=== PATIENT | female | born 1995 | race Caucasian/White ===

== ENCOUNTER 2019-09-16 16:07 | Emergency (ER) | payer BC, SELFPAY ==
[2019-09-16 16:42] VITALS: BP 124/75; PULSE 88; RESP 18; TEMP 37.6; O2SAT 100
--- NOTE | 2019-09-16 17:00 | ED.URI ---
HPI - URI/Sore Throat General Chief Complaint: Upper Respiratory Infection Stated Complaint: sore throat achy and chills Time Seen by Provider: 09/16/19 16:53 Source: patient and RN notes reviewed Mode of arrival: ambulatory Limitations: no limitations History of Present Illness HPI Narrative: Patient presents today complaining of sore throat, body aches, chills, dry cough. Symptoms began today. Denies shortness of breath or fever. No history of asthma or COPD. She has tried no medication for symptoms prior to arrival. She is a non-smoker. She did not receive a flu vaccine this season. MD elicited complaint: cough Related Data Home Medications Medication Instructions Recorded Confirmed No Home Medications 09/16/19 09/16/19 Allergies Allergy/AdvReac Type Severity Reaction Status Date / Time No Known Allergies Allergy Verified 09/16/19 17:00 Review of Systems Review of Systems: Narrative: CONSTITUTIONAL: Denies fever, or sweats.+Body aches, chills EYES: Denies visual changes, redness, or discharge. ENT: Denies rhinorrhea, congestion, or otalgia.+Sore throat CARDIOVASCULAR: Denies chest pain, palpitations, or edema. RESPIRATORY: Denies dyspnea.+Cough GASTROINTESTINAL: Denies abdominal pain, nausea, vomiting, or diarrhea. GENITOURINARY: Denies dysuria or hematuria. SKIN: Denies rash, itching, or wounds. MUSCULOSKELETAL: Denies back pain, joint pain, or myalgia. NEUROLOGIC: Denies headache, numbness, tingling, or weakness. PSYCH: Denies depression or anxiety. [facility] Family History Family History (Updated 07/12/18 @ 13:10 by DOCTOR UNKNOWN) Other Diabetes mellitus Family history of cardiovascular disease Family history of hypercholesterolemia Hypertension Social History Social History Smoking status: Never smoker Alcohol intake: current Comments At time of signature, I have reviewed and agree with nursing past medical, surgical, social and family history unless otherwise noted. Please see nursing chart for further information. There is no relevant family history pertinent to the presenting complaint Exam Narrative: Exam Narrative: GENERAL: Well-appearing, well-nourished, and in no acute distress. HEAD: Normocephalic, atraumatic. EYES: EOMI. No redness or drainage. Conjunctivae normal. ENT: Mucous membranes pink and moist. Nares clear. No rhinorrhea. TMs normal bilaterally. Throat normal. Uvula midline. NECK: Normal AROM. Supple. No lymphadenopathy. CHEST: No respiratory distress. Clear to auscultation. HEART: Regular rate and rhythm. No murmur appreciated. Normal peripheral pulses. ABDOMEN: Soft, nontender, nondistended, normal active bowel sounds. MUSCULOSKELETAL: No bony tenderness. EXTREMITIES: Normal range of motion. No edema. SKIN: Warm, dry, no rash. NEURO: No focal deficits. Alert and oriented x3. Gait steady. PSYCH: Normal affect. No signs of depression or anxiety. Course Vital Signs Vital signs: Vital Signs Temperature 99.6 F 09/16/19 16:42 Pulse Rate 88 09/16/19 16:42 Respiratory Rate 18 09/16/19 16:42 Blood Pressure 124/75 09/16/19 16:42 Pulse Oximetry 100 09/16/19 16:42 Temperature 99.6 F 09/16/19 16:42 Pulse Rate 88 09/16/19 16:42 Respiratory Rate 18 09/16/19 16:42 Blood Pressure 124/75 09/16/19 16:42 Pulse Oximetry 100 09/16/19 16:42 Reviewed. Pt has been instructed to follow up with her PCP regarding her elevated blood pressure today. MDM - URI/Sore Throat Differential Diagnosis Differential diagnosis: Likely upper respiratory infection, viral infection, influenza and other (Strep throat) Lab Data Attestation: I reviewed the patient's lab results. Labs: Influenza A Screen Negative Reference Range: Negative Influenza B Screen Negative Reference Range: Negative Strep Screen Presumptive Negative *(Reference Range: Negative)* Critical Care Time
== END 2019-09-16 17:34 | disposition home or self-care (01) ==
PROVIDERS: Emergency Provider Nurse Practitioner; PCP Family Medicine
DX: B34.9 Viral infection, unspecified (principal)
CPT/HCPCS: 87081; 87804; 87880; 99213; G0463

== ENCOUNTER → 2021-05-07 03:21 | Outpatient (CLI) | payer BC, SELFPAY ==
[2021-05-07 17:41] LABS: SARS-CoV-2 RNA PCR Negative
== END ==
PROVIDERS: PCP Family Medicine; Visit Provider Family Medicine
DX: J34.89 Other specified disorders of nose and nasal sinuses (principal); R06.7 Sneezing
CPT/HCPCS: C9803; U0003; U0005